=== PATIENT | female | born 1930 | race American Indian/Alaskan Native ===

== ENCOUNTER 2018-01-21 08:39 | Outpatient (CLI) | payer MEDICARE ==
--- NOTE | 2018-01-21 10:27 | Fluoroscopy Report ---
MODIFIED BARIUM SWALLOW History: dysphagia. Findings: Video radiography was provided by the radiologist for speech therapy to assess the swallowing mechanism. 1 fluoroscopic image was captured. Impression: Successful modified barium swallow.
== END 2018-01-21 08:40 | disposition home or self-care (01) ==
LOC: PT 08:39
PROVIDERS: ATTEND Otolaryngology
DX: R13.12 Dysphagia, oropharyngeal phase (principal); R42 Dizziness and giddiness
CPT/HCPCS: 74230